=== PATIENT | female | born 1960 | race Caucasian/White ===

== ENCOUNTER 2016-12-05 10:55 | Outpatient (CLI) | payer BC, MEDICARE, OTHER ==
--- NOTE | 2016-12-06 09:12 | Mammography Report ---
DIGITAL DIAGNOSTIC RIGHT MAMMOGRAM: 12/05/2016 CLINICAL HISTORY: A 56-year-old female with pain in the right breast. Family history indicates a co usin with breast cancer at age 63. Patient has no surgical history. Patient's last screening mammog riley was done on 03/21/2016. Present exam is, therefore, a unilateral right diagnostic mammogram. COMPARISON: 04/25/2011, 01/06/2014, 03/21/2016 TECHNIQUE: Craniocaudad, oblique lateral, and mediolateral views of the right breast were obtained w [employer] Full Field digital mammography. Two BBs were placed on the area of patient's pain. This resides in the 11-12 o'clock position of the right breast between 9-13 cm superolateral to the nippl e. FINDINGS: Right breast parenchymal pattern consists almost entirely of fat. No significant clusters of calcification are seen. There is a small asymmetrical density noted in the 9-10 o'clock position of the right breast a few centimeters lateral to the right nipple. It measures 0.8 cm in diameter. It has been present on multiple old exams dated as far back as 04/25/2011. It most likely represent s a benign intramammary lymph node. No significant abnormality is detected in the area of patient's clinically palpable pain. No significant clusters of calcification are seen in the breast. No estrada e is noted in the right breast as compared to multiple preceding exams. Present right mammogram is negative. Occasionally, pain can indicate a significant finding that can only be seen on ultrasound. Recommend, therefore, a right breast ultrasound be obtained to complimen t the present study. IMPRESSION: BIRADS CATEGORY 0 - INCOMPLETE. NEEDS ADDITIONAL IMAGING EVALUATION. RIGHT BREAST ULTR ASOUND. RIGHT BREAST ULTRASOUND WILL BE DONE TODAY PART OF PATIENT'S EVALUATION. STANDARD QUALIFYING STATEMENTS 1. This examination was reviewed with the aid of Computer-Aided Detection (CAD). 2. A negative or benign imaging report should not delay biopsy if clinically suspicious findings are present. Consider surgical consultation if warranted. More than 5% of cancers are not identified by i herminia. 3. Dense breasts may obscure an underlying neoplasm. JOB #: [id number] EXT JOB #:
--- NOTE | 2016-12-06 09:17 | Ultrasound Report ---
RIGHT BREAST ULTRASOUND: 12/05/2016 CLINICAL HISTORY: Patient is having right breast pain and had a negative mammogram today. TECHNIQUE: Real-time scanning was performed with account services representative static images obtained. FINDINGS: Right mammogram over the area of patient's pain demonstrates a small focal well-circumscri bed, hyperechoic nodule in the 12 o'clock position of the right breast 3 cm from the nipple. This no dule measures 0.5 x 0.3 cm and most likely represents a small lipoma. In the 11 o'clock position of the right breast 3 cm from the nipple is a small cyst measuring 0.4 x 0 .4 cm. This cyst may have some calcifications in its wall. It too is of benign etiology. IMPRESSION: NO SIGNIFICANT ABNORMALITY IS NOTED. A 0.4 X 0.4 CM BENIGN CYST WITH CALCIFICATIONS IN I TS WALL IS SEEN IN THE 11 O'CLOCK POSITION AND A SMALL BENIGN LIPOMA MEASURING 0.5 X 0.3 CM IS NOTED IN THE 12 O'CLOCK POSITION. BIRADS CATEGORY 2 - BENIGN. RECOMMENDATIONS: Annual bilateral screening mammography. Patient's next bilateral screening mammogr am is due in six months. COMMENT: Patient was informed of the benign results both verbally and given a written form. This wa s done by Dr. Joseph on 12/05/2016 at 12:45 p.m. JOB #: [id number] EXT JOB #:[id number]
== END 2016-12-05 10:56 | disposition home or self-care (01) ==
LOC: DI 10:55
PROVIDERS: ATTEND Internal Medicine
DX: N60.01 Solitary cyst of right breast (principal); D17.79 Benign lipomatous neoplasm of other sites
CPT/HCPCS: 76642

== ENCOUNTER 2017-01-09 11:24 | Outpatient (CLI) | payer BC, MEDICARE, OTHER ==
[2017-01-09 11:57] LABS: BASOPHILS # (AUTO) 0.1 10^3/uL (0.0-0.1); BASOPHILS % (AUTO) 1.2 %; EOSINOPHILS # (AUTO) 0.2 10^3/uL (0.0-0.7); EOSINOPHILS % (AUTO) 2.1 %; HCT - HEMATOCRIT 40.2 % (37.0-47.0); LYMPHOCYTES # (AUTO) 2.8 10^3/uL (1.5-3.5); LYMPHOCYTES % (AUTO) 27.3 %; MEAN CORPUSCULAR HEMOGLOBIN 25.7 pg (27.0-31.0); MEAN CORPUSCULAR HGB CONC 32.4 g/dL (32.0-36.0); MEAN CORPUSCULAR VOLUME 79.3 fL (81.0-99.0); MONOCYTES # (AUTO) 0.4 10^3/uL (0.0-1.0); MONOCYTES % (AUTO) 4.1 %; NEUTROPHILS # (AUTO) 6.8 10^3/uL (1.5-6.6); NEUTROPHILS % (AUTO) 65.3 %; RED BLOOD COUNT 5.07 10^6/uL (4.20-5.40); UNCORRECTED WHITE BLOOD COUNT 10.4 x10^3/uL; WHITE BLOOD COUNT 10.4 x10^3/uL (4.8-10.8)
[2017-01-09 12:06] LABS: INR 0.9 (0.8-1.2); PT - PROTHROMBIN TIME 10.4 secs (9.9-12.6)
[2017-01-09 12:13] LABS: PARTIAL THROMBOPLASTIN TIME 29.6 secs (24.9-33.3)
[2017-01-09 12:24] LABS: ALBUMIN/GLOBULIN RATIO 1.3 (1.0-2.2); BILIRUBIN,TOTAL 0.4 mg/dL (0.2-1.0); CALCIUM 9.5 mg/dL (8.5-10.3); CREATININE 0.6 mg/dL (0.4-1.0); TOTAL PROTEIN 7.5 g/dL (6.7-8.2)
[2017-01-09 12:57] LABS: HEMOGLOBIN A1C 0.59 g/dL
== END 2017-01-09 11:25 | disposition home or self-care (01) ==
LOC: LAB 11:24
PROVIDERS: ATTEND Internal Medicine
DX: Z01.818 Encounter for other preprocedural examination (principal); I10 Essential (primary) hypertension; F41.9 Anxiety disorder, unspecified; R20.9 Unspecified disturbances of skin sensation; K21.9 Gastro-esophageal reflux disease without esophagitis; E16.2 Hypoglycemia, unspecified; Z79.899 Other long term (current) drug therapy
CPT/HCPCS: 36415; 80053; 83036; 85025; 85610; 85730; 87640